=== PATIENT | female | born 1995 ===

== ENCOUNTER 2025-02-23 10:59 | Emergency (ER) | payer OTHER ==
[~2025-02-23] VITALS: Ht 152.4 cm; Wt 51.8 kg
[2025-02-23 11:11] VITALS: BP 110/86; PULSE 86; RESP 18; TEMP 98.3; O2SAT 94
[2025-02-23] MEDS ORDERED: LORA2TAB18 PO (11:25)
[2025-02-23] MEDS ORDERED: DIVA-111 PO (11:25)
[2025-02-23] MEDS ORDERED: RISP1TAB48 PO (11:25)
[2025-02-23] MEDS ORDERED: HALO5TAB23 PO (11:25)
[2025-02-23 11:51] LABS: PLATELET COUNT (AUTO) 352 K/uL (150-450); RED BLOOD CELL COUNT(AUTO) 4.30 MIL/uL (4.00-5.20); RED CELL DISTRIBUTION WIDTH 13.6 % (11.5-14.5); WHITE BLOOD COUNT (AUTO) 5.2 K/uL (4.5-11.0)
[2025-02-23 11:58] LABS: CALCIUM, TOTAL 9.4 mg/dL (8.8-10.5); CREATININE 0.69 mg/dL (0.60-1.30); GLOMERULAR FILTR. RATE CALC > 60 mL/min (>60); GLUCOSE,RANDOM 98 mg/dL (70-110); SODIUM SERUM 134 mmol/L (136-145); UREA NITROGEN, BLOOD 10 mg/dL (7-18)
[2025-02-23 12:05] LABS: ASPARTATE AMINOTRANSFERASE 28 U/L (15-37); TOTAL PROTEIN, SERUM 8.6 g/dL (6.4-8.2)
[2025-02-23 12:10] LABS: ALCOHOL, BLOOD (SERUM) < 3 mg/dL (0-10)
[2025-02-23 12:11] LABS: TROPONIN I-HIGH SENSITIVITY Less Than 4 ng/L (<51)
[2025-02-23 13:22] LABS: PH,URINE DRUG SCREEN 7.5 (5.0-8.0)
[2025-02-23 13:30] LABS: ALCOHOL, URINE DRUG SCREEN NEGATIVE (NEGATIVE); AMPHET/METH SCREEN,URINE NEGATIVE (NEGATIVE); BARBITURATE SCREEN, URINE NEGATIVE (NEGATIVE); CANNABINOID SCREEN,URINE POSITIVE (NEGATIVE); COCAINE SCREEN,URINE NEGATIVE (NEGATIVE); METHADONE SCREEN, URINE NEGATIVE (NEGATIVE)
== END 2025-02-23 13:49 | disposition left against medical advice (07) ==
LOC: EMS 10:59
DX: R20.0 Anesthesia of skin (principal); R53.1 Weakness; Z79.899 Other long term (current) drug therapy; Z88.5 Allergy status to narcotic agent
CPT/HCPCS: 99285; 70450; 71045; 80048; 80076; 83880; 84484; 84703; 85025; 85610; 85730; 36415; 93005; 80307; G0480